=== PATIENT | female | born 1955 | race Caucasian/White ===

== ENCOUNTER 2016-06-12 06:38 | Inpatient (IN) | payer OTHER, BC ==
[~2016-06-12] VITALS: Ht 157.5 cm; Wt 73.5 kg
--- NOTE | 2016-06-12 09:34 | DIAGNOSTIC IMAGING REPORT ---
PROCEDURE: XR CHEST 2 VIEW INDICATION: COUGH TECHNIQUE: PA and lateral view. COMPARISON: None. FINDINGS: Hyperinflation with small left basilar infiltrate Cardiovascular structures are normal. Bony thorax is unremarkable. IMPRESSION: 1. Hyperinflation with small left basilar infiltrate 2. Results discussed with Dr. Jules
--- NOTE | 2016-06-12 10:12 | ED CLINICAL REPORT ---
Clinical Report - Physicians/Mid Levels [facility] [address] [place] [address] 06/12/2016 6:40 Patient: MARIBEL MAYES Time Seen: 06:53 Guillermo 2016. Arrived- By private vehicle. Historian- patient. CPT: ER phys charges level 5 (#[id number]). HISTORY OF PRESENT ILLNESS Chief Complaint: COUGH. This started about 1 weeks [employer] and is still present. The illness is described as moderate. The patient has had sputum production, a cough, difficulty breathing, a sore throat and muscle aches. Similar symptoms previously: None. Recent medical care: Not recently seen/assessed. REVIEW OF SYSTEMS The patient has had a headache, fatigue and weakness. No nausea, vomiting, diarrhea, abdominal pain or pedal edema. No calf pain, difficulty with urination, skin rash, enlarged lymph nodes or mouth sores. No sore throat, neck pain, diabetic symptoms or easy bruising. All systems otherwise negative, except as recorded above. PAST HISTORY Pneumonia. Medications: Morphine Sulfate Oral. Synthroid Oral. Ziac Oral. Allergies: Biaxin. Sulfa Antibiotics. SOCIAL HISTORY Light tobacco smoker (cigarette)- less than 1/2 a pack per day. No alcohol use or drug use. ADDITIONAL NOTES The nursing notes have been reviewed. PHYSICAL EXAM Vital Signs: 06/12/2016 06:50 BP: 198/101. HR: 74. RR: 18. O2 saturation: 99%. Temp: 98.5 F. Appearance: Alert. Anxious. Patient in moderate distress. (Fatigued appearing). Eyes: Eyes normal inspection. ENT: Ears normal. Nose normal. Pharynx normal. Uvula midline. Neck: Normal inspection. CVS: Normal heart rate and rhythm. Heart sounds normal. Pulses normal. Respiratory: Moderate respiratory distress with tachypnea. Mild wheezes in the right lung base. Mild rales in the right lung base; mild rales in the left lung base. Abdomen: Soft and nontender. Back: Normal inspection. Skin: Skin warm. Normal skin color. No rash. Extremities: Extremities exhibit normal ROM. No calf tenderness. No lower extremity edema. Neuro: Oriented X 3. No motor deficit. No sensory deficit. Reflexes normal. LABS, X-RAYS, AND EKG Chest X-ray: (Perihilar changes consistent with bronchitis. There is an area of patchy infiltrate over the LLL.). Views: PA and lateral. Technique: good. The X-rays were independently viewed by me and interpreted contemporaneously by me. Laboratory Tests: CBC w Diff: (AMANDA: 06/13/2016 05:03) ( [facility] 06/13/2016 05:41) Final results Test Result Flag Units (Reference) WHITE BLOOD COUNT 7.0 K/uL (4.5-11.5) RED BLOOD COUNT 3.17 L M/uL (4.00-5.20) HEMOGLOBIN 10.8 L gm/dL (12.0-16.0) HEMATOCRIT 33.1 L % (36.0-46.0) MEAN CELL VOLUME 104 H fL (80-100) MEAN CORPUSCULAR HGB 34 pg (26-34) MEAN CORPUSCULAR HGB CONC 33 g/dL (31-37) RED CELL DISTRIBUTION WIDTH 13.7 % (11.6-14.8) PLATELET COUNT 223 K/uL (150-400) NEUTROPHIL % 90.3 H % (50-75) LYMPH % 5.9 L % (25-40) MONO % 3.7 % (3-14) EOSINOPHIL % 0 % (0-4) BASOPHIL % 0.1 % (0-2) [id number]: (AMANDA: 06/13/2016 05:03) ( [facility] 06/13/2016 06:03) Final results Test Result Flag Units (Reference) PROCALCITONIN <0.5 ng/mL (0-0.5) PCT Concentration: Interpretation : Risk/option for action PCT <=0.5 ng/mL : Systemic : Low risk forinfection(sepsis): progression to severeis not likely. : systemic infection.Local bacterial : CAUTION-PCT levelsinfection is : below 0.5 ng/mL do notpossible. : exclude an infection,because localizedinfections (withoutsystemic signs) may beassociated with suchlow levels. If PCT ismeasured very earlyafter a bacterialchallenge (usually <6hours), these valuesmay still be low. Inthis case PCT shouldbe re-assessed 6-24hours later. PCT >0.5 and : Systemic infection: Moderate risk for<= 2 ng/mL : (sepsis) is : progression to severepossible, but : systemic infection.other conditions : The patient should beare known to : closely monitoredelevate PCT. : both clinically andby re-assessing PCTwithin 6-24 hours. PCT > 2 ng/mL : Systemic infection: High risk for(sepsis) is likely: progression to severeunless other : systemic infection.causes are known. : PCT >= 10 ng/mL : Important systemic: High likelihood ofinflammatory : severe sepsis orresponse, almost : septic shock.exclusively due to:severe bacterial :sepsis or septic :shock. : BMP: (AMANDA: 06/13/2016 05:03) ( MsgRcvd 06/13/2016 05:48) Final results Test Result Flag Units (Reference) GLUCOSE 182 H mg/dL (70-110) BUN 10 mg/dL (7-18) CREATININE 0.7 mg/dL (0.6-1.3) Estimated GFR >60 mL/min Estimated GFR- >60 mL/min Note: Persistent reduction over 3 months in eGFR<60 mL/min/1.73 m2 defines CKD. Patients with eGFR values>=60 mL/min/1.73 m2 may also have CKD if evidence ofpersistent proteinuria. Additional information may be foundat www.kidney.org. SODIUM 129 L mmol/L (136-145) POTASSIUM 3.2 # L mmol/L (3.5-5.1) CHLORIDE 93 L mmol/L (98-107) CARBON DIOXIDE 31 mmol/L (21-32) CALCIUM 8.1 L mg/dL (8.5-10.1) MAGNESIUM 1.9 mg/dL (1.8-2.4) Urinalysis: (AMANDA: 06/12/2016 08:00) ( [facility] 06/12/2016 10:34) Final results Test Result Flag Units (Reference) URINE COLOR YELLOW URINE APPEARANCE CLEAR URINE GLUCOSE NEGATIVE (NEGATIVE) URINE BILIRUBIN NEGATIVE (NEGATIVE) URINE KETONE NEGATIVE (NEGATIVE) URINE SPECIFIC GRAVITY 1.015 (1.010-1.030) URINE PH 6.0 (5.0-8.0) URINE PROTEIN TRACE (NEGATIVE) URINE UROBILINOGEN 0.2 EU/dL (0.2-1.0) URINE NITRITE NEGATIVE (NEGATIVE) URINE BLOOD NEGATIVE (NEGATIVE) URINE LEUKOCYTE ESTERASE NEGATIVE (NEGATIVE) URINE RBC 0-1 rbc/hpf (0-1) URINE WBC NONE SEEN wbc/hpf (0-1) URINE EPITHELIAL CELLS RARE EPI/hpf (0-5) URINE BACTERIA NONE SEEN (NONE SEEN) URINE COMMENT N CBC w Diff: (AMANDA: 06/12/2016 08:15) ( [facility] 06/12/2016 08:34) Final results Test Result Flag Units (Reference) WHITE BLOOD COUNT 9.8 K/uL (4.5-11.5) RED BLOOD COUNT 3.50 L M/uL (4.00-5.20) HEMOGLOBIN 11.9 L gm/dL (12.0-16.0) HEMATOCRIT 36.2 % (36.0-46.0) MEAN CELL VOLUME 103 H fL (80-100) MEAN CORPUSCULAR HGB 34 pg (26-34) MEAN CORPUSCULAR HGB CONC 33 g/dL (31-37) RED CELL DISTRIBUTION WIDTH 14.1 % (11.6-14.8) PLATELET COUNT 248 K/uL (150-400) NEUTROPHIL % 84.2 H % (50-75) LYMPH % 8.4 L % (25-40) MONO % 5.7 % (3-14) EOSINOPHIL % 1.4 % (0-4) BASOPHIL % 0.3 % (0-2) Lactate, Serum: (AMANDA: 06/12/2016 10:25) ( [facility] 06/12/2016 11:07) Final results Test Result Flag Units (Reference) LACTIC ACID 1.0 mmol/L (0.4-2.0) [id number]: (AMANDA: 06/12/2016 10:25) ( MsgRcvd 06/12/2016 11:17) Final results Test Result Flag Units (Reference) PROCALCITONIN <0.5 ng/mL (0-0.5) PCT Concentration: Interpretation : Risk/option for action PCT <=0.5 ng/mL : Systemic : Low risk forinfection(sepsis): progression to severeis not likely. : systemic infection.Local bacterial : CAUTION-PCT levelsinfection is : below 0.5 ng/mL do notpossible. : exclude an infection,because localizedinfections (withoutsystemic signs) may beassociated with suchlow levels. If PCT ismeasured very earlyafter a bacterialchallenge (usually <6hours), these valuesmay still be low. Inthis case PCT shouldbe re-assessed 6-24hours later. PCT >0.5 and : Systemic infection: Moderate risk for<= 2 ng/mL : (sepsis) is : progression to severepossible, but : systemic infection.other conditions : The patient should beare known to : closely monitoredelevate PCT. : both clinically andby re-assessing PCTwithin 6-24 hours. PCT > 2 ng/mL : Systemic infection: High risk for(sepsis) is likely: progression to severeunless other : systemic infection.causes are known. : PCT >= 10 ng/mL : Important systemic: High likelihood ofinflammatory : severe sepsis orresponse, almost : septic shock.exclusively due to:severe bacterial :sepsis or septic :shock. : CHEM 13 PANEL: (AMANDA: 06/12/2016 08:15) ( MsgRcvd 06/12/2016 08:51) Final results Test Result Flag Units (Reference) GLUCOSE 116 H mg/dL (70-110) BUN 10 mg/dL (7-18) CREATININE 0.6 mg/dL (0.6-1.3) Estimated GFR >60 mL/min Estimated GFR- >60 mL/min Note: Persistent reduction over 3 months in eGFR<60 mL/min/1.73 m2 defines CKD. Patients with eGFR values>=60 mL/min/1.73 m2 may also have CKD if evidence ofpersistent proteinuria. Additional information may be foundat www.kidney.org. SODIUM 124 L mmol/L (136-145) POTASSIUM 4.1 mmol/L (3.5-5.1) CHLORIDE 87 L mmol/L (98-107) CARBON DIOXIDE 33 H mmol/L (21-32) CALCIUM 8.7 mg/dL (8.5-10.1) TOTAL PROTEIN 7.4 g/dL (6.4-8.2) ALBUMIN 3.8 g/dL (3.3-5.0) BILIRUBIN, TOTAL 0.4 mg/dL (0.0-1.0) ALKALINE PHOSPHATASE 113 U/L (46-116) AST (SGOT) 52 H U/L (15-37) ALT (SGPT) 52 U/L (12-78) MAGNESIUM 1.4 L mg/dL (1.8-2.4) CPK 146 U/L (24-260) TROPONIN I <0.05 L ng/mL (0.00-1.5) TROPONIN REFERENCE RANGE:<0.1 NEGATIVE0.1-1.5 INDETERMINANT>1.5 POSITIVE Blood Culture: (AMANDA: 06/12/2016 10:30) ( [facility] 06/13/2016 10:32) IP Is patient on antibiotics? N If so, list antibiotic: N/A Test Result Flag Units (Reference) CULTURE, BLOOD NO GROWTH AFTER 24 HOURS Blood Culture: (AMANDA: 06/12/2016 10:25) ( [facility] 06/13/2016 10:32) IP Is patient on antibiotics? N If so, list antibiotic: N/A Test Result Flag Units (Reference) CULTURE, BLOOD NO GROWTH AFTER 24 HOURS Rapid Influenza Screen: (AMANDA: 06/12/2016 08:00) ( [facility] 06/12/2016 08:43) Final results SPECIMEN DESCRIPTION: SWAB Test Result Flag Units (Reference) RAPID INFLUENZA SCREEN CALLED TO: SHAMAR OSPINA,ER -- DATE: 06/12/16 INFLUENZA A: POSITIVE SCREEN FOR INFLUENZA A INFLUENZA B: NEGATIVE SCREEN FOR INFLUENZA B . PROGRESS AND PROCEDURES Course of Care: IV NS Still wheezing despite 2 HHN Pt positive for influenza A. RT notes patient desturated initially on ambulation before HHN. Will check walk test after HHN. Solumedrol 125 mg IV Pt quite SOB with ambulation and wheezing persists although sats still in the low 90's. Worried about work of breathing, weakness and potential staph pneumonia with the positive influenza A status and infiltrate. BC times 2 Vancomycin 25 mg /kg IV Levaquin 750 mg IV Tamiflu 75 mg po. Discussed case with on-call health care provider, (Soraya). Reviewed test results. Agreed upon treatment plan and decision to admit. Health care provider will see patient in hospital. Patient/family counseled. Old medical records ordered. Disposition orders written. Disposition: Admitted to Acute Care. CLINICAL IMPRESSION Acute dyspnea Influenza (A) and bacterial pneumonia. Vital signs recorded and reviewed; empiric antibiotics given in the ED. Acute bronchospasm Weakness. (Electronically signed by Woody Jules MD 06/13/2016 13:15)
--- NOTE | 2016-06-12 10:12 | ED ORDER SUMMARY ---
..... Patient: MARIBEL MAYES OrderSheet [facility] VisitID: [id number] [address] [place] [address] 61y, F Registration Date/Time: 06/12/2016 ORDER SHEET Weight: 66.6 kg (stated) Allergies: Biaxin, Sulfa Antibiotics GENERAL ORDERS: Chest 2V Urgent (06:56 06/12/2016 Dalia PICKENS) (Ack 7:01 [facility]) (10:39 LWhalen R.N.) Rapid Influenza Screen (Nasal Pharyngeal) (swab) Urgent (06:56 06/12/2016 Dalia PICKENS) (Ack 7:01 [facility]) (8:05 Althea R.N.) Cardiac Panel Stat (08:02 06/12/2016 Dalia PICKENS) (Ack 8:08 Joanne) (10:39 LWhalen R.N.) Blood Culture (No) (N/A) Urgent (10:06 06/12/2016 Dalia PICKENS) (10:28 LWhalen R.N.) Oxygen (2 L/min) (NC) (10:08 06/12/2016 Dalia PICKENS) (10:28 LWhalen R.N.) Pulse oximeter (10:08 06/12/2016 Dalia PICKENS) (10:28 LWhalen R.N.) Lactate, Serum Urgent (10:11 06/12/2016 Dalia PICKENS) (10:39 LWhalen R.N.) PCT (Procalcitonin) Urgent (10:11 06/12/2016 Dalia PICKENS) (10:39 LWhalen R.N.) Urinalysis Urgent (10:13 06/12/2016 Dalia PICKENS) MEDICATION ORDERS: DuoNeb Neb Tx 1 unit dose (NOW) (06:48 06/12/2016 Lele R.N. per protocol) (Ack 6:51 [facility]) Albuterol Neb Tx 2.5 mg (NOW, HHN) (08:02 06/12/2016 Dalia PICKENS) (Ack 9:52 Joanne) - (TAMIFLU 75 MG PO) (10:06/12/2016 Dalia PICKENS) (10:25 LWhalrehan R.N.) IV FLUIDS: IV Saline Lock (08:02 06/12/2016 Dalia PICKENS) (8:25 LWhalrehan R.N.) Vancomycin IV 25 mg/kg (NOW) (10:06/12/2016 Dalia PICKENS) (Ack 10:29 LWhalrehan R.N.) Levaquin IV 750 mg/150 mL (NOW) (10:06/12/2016 Dalia PICKENS) (Ack 10:29 LWhalrehan R.N.) (10:39 LWhalrehan R.N.) Solu-MEDROL IV 125 mg (NOW) (:06/12/2016 Dalia PICKENS) (10:24 LWhalrehan R.N.) IV NS : initial bolus 250 mL (1000 mL/hr), then 125 mL/hr for 12h (NOW); Routine (10:06/12/2016 Dalia PICKENS) (10:24 LWhalrehan R.N.) ORDER SHEET NOTES: [Electronically signed by Karen Quiroga R.N. (11:20 06/12/2016)] [Electronically signed by Woody Jules MD (13:15 06/13/2016)] [Electronically locked/signed by Karen Quiroga R.N. (11:20 06/12/2016)]
--- NOTE | 2016-06-12 10:12 | ED NURSING NOTES ---
Clinical Report - Nurses [facility] [address] [place] [address] 06/12/2016 6:40 Patient: MARIBEL MAYES TRIAGE Chief Complaint: SHORTNESS OF BREATH and DIFFICULTY BREATHING. SEPSIS SCREEN: Sepsis Screen: respiratory rate greater than 20. Temperature not greater than 38.3 degrees C (101 degrees F). Heart rate not greater than 90. Systolic blood pressure not less than 90. Mean arterial pressure not less than 65. --06:53 Roscoe Raygoza R.N. 06:50 06/12/16. BP: 198/101. HR: 74. RR: 18. O2 saturation: 99%. Temp: 98.5 F. Pain level now 0/10. --06:53 Roscoe Raygoza R.N. Weight: 66.6 kg stated. Height/Length: 62 inches. BMI: 26.9. --06:51 Roscoe Raygoza R.N. Medications Ziac Oral. --06:52 Roscoe Raygoza R.N. Synthroid Oral. --06:52 Roscoe Raygoza R.N. Morphine Sulfate Oral. --06:52 Roscoe Raygoza R.N. Allergies Biaxin. --06:53 Roscoe Raygoza R.N. Sulfa Antibiotics. --06:53 Roscoe Raygoza R.N. History ( pt reports sob for past week increased symptoms this evening). --06:53 Roscoe Raygoza R.N. SOCIAL HX: Light tobacco smoker. No alcohol use or drug use. --06:55 Roscoe Raygoza R.N. PHYSICAL ASSESSMENT GENERAL / NEURO / PSYCH: Alert. Oriented X 4. Appears anxious. RESPIRATORY: Mild respiratory distress. The patient can speak one word at a time. Cough productive of moderate amounts of sputum. Wheezes in the right and left lung. CVS: Capillary refill less than 2 seconds. GI / : Bowel sounds within normal limits. SKIN: Skin is warm and dry. --06:54 Roscoe Raygoza R.N. Ambulatory to room. --06:54 Roscoe Raygoza R.N. NURSING PROGRESS NOTES Oxygen administered. Monitoring of patient in place. Patient gowned. Reassurance given. Two patient identifiers checked. Side rails up x 1. Bed placed in lowest position. --06:54 Roscoe Raygoza R.N. ( Pt taken off 02 sat well on RA alert and oriented GCS 15). --07:19 Roscoe Raygoza R.N. 08:25 06/12/2016 Site #1 started via IV in the right antecubital space with an 20g angiocath, with aseptic technique and good blood return; one attempt. Blood drawn: rainbow set. Labeled in the presence of the patient and sent to the lab. Saline lock flushed with 10 mL saline. --08:25 Karen Quiroga R.N. ( Patient walking with O2 sensor on and sat stable at 97 percent. Patient can speak full sentences but is sob with coughing.). --09:42 Karen Quiroga R.N. 08:55 06/12/16. BP: 148/62. HR: 88. RR: 18. O2 saturation: 98% on room air. 08:10 06/12/16. BP: 147/77. HR: 97. RR: 18. O2 saturation: 98%. --09:47 Karen Quiroga R.N. 10:24 06/12/2016 SOLU-MEDROL (MethylPREDNISolone Sodium Succ) IVP 125 mg given over 2 minute(s) via site #1. Allergies verified and confirmed 5 rights. IV patency established. IV site checked: no pain, redness, or swelling. IV flushed thoroughly pre- and post-medication administration. --10:24 Karen Quiroga R.N. 10:24 06/12/2016 Started bag #1 1000 mL IV Fluids IV NS (Saline); at 1000 mL/hr over 0.5 hour(s) via site #1 via IV pump. Allergies verified and confirmed 5 rights. IV patency established. IV site checked: no pain, redness, or swelling. IV flushed thoroughly pre- and post-medication administration. --10:24 Karen Quiroga R.N. 10:25 06/12/2016 Tamiflu PO Capsules 75 mg given. Allergies verified and confirmed 5 rights. --10:25 Karen Quiroga R.N. 10:39 06/12/2016 Started 750 mg of Levaquin (Levofloxacin) IVPB in bag #1 150 mL; at 100 mL/hr over 1.5 hour(s) via site #1 via IV pump. Allergies verified and confirmed 5 rights. IV patency established. IV site checked: no pain, redness, or swelling. IV flushed thoroughly pre- and post-medication administration. --10:39 Karen Quiroga R.N. 10:53 06/12/16. BP: 139/66. HR: 90. RR: 22. O2 saturation: 100%. Pain level now 0/10. --10:55 Karen Quiroga R.N. 10:53 06/12/16. BP: 139/66. HR: 90. RR: 22. O2 saturation: 100%. Pain level now 0/10. 10:20 06/12/16. BP: 139/68. HR: 90. RR: 18. O2 saturation: 100%. --11:00 Karen Quiroga R.N. ( report given to Abhijeet IBANEZ in [facility]U patient will be admitted.). --11:00 Karen Quiroga R.N. DISPOSITION / DISCHARGE Departure time: 11:00 Jun 12 2016. Admitted (308). ( Report given transport here to take pt.). --11:16 Karen Quiroga R.N. 11:06/12/2016 Site #[address] upon transfer; patent. --11:16 Karen Quiroga R.N. 11:06/12/2016 IV Saline Lock Drip IV Continued: at the rate of 250 mL/hr. 800 mL remaining bag #1. IV patency established. IV site checked: no pain, redness, or swelling. IV flushed thoroughly. --11:17 Karen Quiroga R.N. 11:07 06/12/2016 IV Fluids IV NS Continued: at the rate of 1000 mL/hr. 800 mL remaining bag #1. IV patency established. IV site checked: no pain, redness, or swelling. IV flushed thoroughly. --11:17 Karen Quiroga R.N. 11:08 06/12/2016 Levaquin IVPB Continued: at the rate of 100 mL/hr. 120 mL remaining bag #1. IV patency established. IV site checked: no pain, redness, or swelling. IV flushed thoroughly. --11:18 Karen Quiroga R.N. 10:53 06/12/16. BP: 139/66. HR: 90. RR: 22. O2 saturation: 100%. Pain level now 0/10. --11:19 Karen Quiroga R.N. 11:19 06/12/16. Temp: 97.6 F. --11:19 Karen Quiroga R.N. Locked/Released at 06/12/2016 11:20 by Karen Quiroga R.N.
--- NOTE | 2016-06-12 10:12 | ED CLINICAL REPORT ---
Clinical Report - Physicians/Mid Levels [facility] [address] [place] [address] 06/12/2016 6:40 Patient: MARIBEL MAYES Time Seen: 06:53 Guillermo 2016. Arrived- By private vehicle. Historian- patient. CPT: ER phys charges level 5 (#[id number]). HISTORY OF PRESENT ILLNESS Chief Complaint: COUGH. This started about 1 weeks [employer] and is still present. The illness is described as moderate. The patient has had sputum production, a cough, difficulty breathing, a sore throat and muscle aches. Similar symptoms previously: None. Recent medical care: Not recently seen/assessed. REVIEW OF SYSTEMS The patient has had a headache, fatigue and weakness. No nausea, vomiting, diarrhea, abdominal pain or pedal edema. No calf pain, difficulty with urination, skin rash, enlarged lymph nodes or mouth sores. No sore throat, neck pain, diabetic symptoms or easy bruising. All systems otherwise negative, except as recorded above. PAST HISTORY Pneumonia. Medications: Morphine Sulfate Oral. Synthroid Oral. Ziac Oral. Allergies: Biaxin. Sulfa Antibiotics. SOCIAL HISTORY Light tobacco smoker (cigarette)- less than 1/2 a pack per day. No alcohol use or drug use. ADDITIONAL NOTES The nursing notes have been reviewed. PHYSICAL EXAM Vital Signs: 06/12/2016 06:50 BP: 198/101. HR: 74. RR: 18. O2 saturation: 99%. Temp: 98.5 F. Appearance: Alert. Anxious. Patient in moderate distress. (Fatigued appearing). Eyes: Eyes normal inspection. ENT: Ears normal. Nose normal. Pharynx normal. Uvula midline. Neck: Normal inspection. CVS: Normal heart rate and rhythm. Heart sounds normal. Pulses normal. Respiratory: Moderate respiratory distress with tachypnea. Mild wheezes in the right lung base. Mild rales in the right lung base; mild rales in the left lung base. Abdomen: Soft and nontender. Back: Normal inspection. Skin: Skin warm. Normal skin color. No rash. Extremities: Extremities exhibit normal ROM. No calf tenderness. No lower extremity edema. Neuro: Oriented X 3. No motor deficit. No sensory deficit. Reflexes normal. LABS, X-RAYS, AND EKG Chest X-ray: (Perihilar changes consistent with bronchitis. There is an area of patchy infiltrate over the LLL.). Views: PA and lateral. Technique: good. The X-rays were independently viewed by me and interpreted contemporaneously by me. Laboratory Tests: CBC w Diff: (AMANDA: 06/13/2016 05:03) ( [facility] 06/13/2016 05:41) Final results Test Result Flag Units (Reference) WHITE BLOOD COUNT 7.0 K/uL (4.5-11.5) RED BLOOD COUNT 3.17 L M/uL (4.00-5.20) HEMOGLOBIN 10.8 L gm/dL (12.0-16.0) HEMATOCRIT 33.1 L % (36.0-46.0) MEAN CELL VOLUME 104 H fL (80-100) MEAN CORPUSCULAR HGB 34 pg (26-34) MEAN CORPUSCULAR HGB CONC 33 g/dL (31-37) RED CELL DISTRIBUTION WIDTH 13.7 % (11.6-14.8) PLATELET COUNT 223 K/uL (150-400) NEUTROPHIL % 90.3 H % (50-75) LYMPH % 5.9 L % (25-40) MONO % 3.7 % (3-14) EOSINOPHIL % 0 % (0-4) BASOPHIL % 0.1 % (0-2) [id number]: (AMANDA: 06/13/2016 05:03) ( [facility] 06/13/2016 06:03) Final results Test Result Flag Units (Reference) PROCALCITONIN <0.5 ng/mL (0-0.5) PCT Concentration: Interpretation : Risk/option for action PCT <=0.5 ng/mL : Systemic : Low risk forinfection(sepsis): progression to severeis not likely. : systemic infection.Local bacterial : CAUTION-PCT levelsinfection is : below 0.5 ng/mL do notpossible. : exclude an infection,because localizedinfections (withoutsystemic signs) may beassociated with suchlow levels. If PCT ismeasured very earlyafter a bacterialchallenge (usually <6hours), these valuesmay still be low. Inthis case PCT shouldbe re-assessed 6-24hours later. PCT >0.5 and : Systemic infection: Moderate risk for<= 2 ng/mL : (sepsis) is : progression to severepossible, but : systemic infection.other conditions : The patient should beare known to : closely monitoredelevate PCT. : both clinically andby re-assessing PCTwithin 6-24 hours. PCT > 2 ng/mL : Systemic infection: High risk for(sepsis) is likely: progression to severeunless other : systemic infection.causes are known. : PCT >= 10 ng/mL : Important systemic: High likelihood ofinflammatory : severe sepsis orresponse, almost : septic shock.exclusively due to:severe bacterial :sepsis or septic :shock. : BMP: (AMANDA: 06/13/2016 05:03) ( [facility] 06/13/2016 05:48) Final results Test Result Flag Units (Reference) GLUCOSE 182 H mg/dL (70-110) BUN 10 mg/dL (7-18) CREATININE 0.7 mg/dL (0.6-1.3) Estimated GFR >60 mL/min Estimated GFR- >60 mL/min Note: Persistent reduction over 3 months in eGFR<60 mL/min/1.73 m2 defines CKD. Patients with eGFR values>=60 mL/min/1.73 m2 may also have CKD if evidence ofpersistent proteinuria. Additional information may be foundat www.kidney.org. SODIUM 129 L mmol/L (136-145) POTASSIUM 3.2 # L mmol/L (3.5-5.1) CHLORIDE 93 L mmol/L (98-107) CARBON DIOXIDE 31 mmol/L (21-32) CALCIUM 8.1 L mg/dL (8.5-10.1) MAGNESIUM 1.9 mg/dL (1.8-2.4) Urinalysis: (AMANDA: 06/12/2016 08:00) ( [facility] 06/12/2016 10:34) Final results Test Result Flag Units (Reference) URINE COLOR YELLOW URINE APPEARANCE CLEAR URINE GLUCOSE NEGATIVE (NEGATIVE) URINE BILIRUBIN NEGATIVE (NEGATIVE) URINE KETONE NEGATIVE (NEGATIVE) URINE SPECIFIC GRAVITY 1.015 (1.010-1.030) URINE PH 6.0 (5.0-8.0) URINE PROTEIN TRACE (NEGATIVE) URINE UROBILINOGEN 0.2 EU/dL (0.2-1.0) URINE NITRITE NEGATIVE (NEGATIVE) URINE BLOOD NEGATIVE (NEGATIVE) URINE LEUKOCYTE ESTERASE NEGATIVE (NEGATIVE) URINE RBC 0-1 rbc/hpf (0-1) URINE WBC NONE SEEN wbc/hpf (0-1) URINE EPITHELIAL CELLS RARE EPI/hpf (0-5) URINE BACTERIA NONE SEEN (NONE SEEN) URINE COMMENT N CBC w Diff: (AMANDA: 06/12/2016 08:15) ( [facility] 06/12/2016 08:34) Final results Test Result Flag Units (Reference) WHITE BLOOD COUNT 9.8 K/uL (4.5-11.5) RED BLOOD COUNT 3.50 L M/uL (4.00-5.20) HEMOGLOBIN 11.9 L gm/dL (12.0-16.0) HEMATOCRIT 36.2 % (36.0-46.0) MEAN CELL VOLUME 103 H fL (80-100) MEAN CORPUSCULAR HGB 34 pg (26-34) MEAN CORPUSCULAR HGB CONC 33 g/dL (31-37) RED CELL DISTRIBUTION WIDTH 14.1 % (11.6-14.8) PLATELET COUNT 248 K/uL (150-400) NEUTROPHIL % 84.2 H % (50-75) LYMPH % 8.4 L % (25-40) MONO % 5.7 % (3-14) EOSINOPHIL % 1.4 % (0-4) BASOPHIL % 0.3 % (0-2) Lactate, Serum: (AMANDA: 06/12/2016 10:25) ( [facility] 06/12/2016 11:07) Final results Test Result Flag Units (Reference) LACTIC ACID 1.0 mmol/L (0.4-2.0) [id number]: (AMANDA: 06/12/2016 10:25) ( [facility] 06/12/2016 11:17) Final results Test Result Flag Units (Reference) PROCALCITONIN <0.5 ng/mL (0-0.5) PCT Concentration: Interpretation : Risk/option for action PCT <=0.5 ng/mL : Systemic : Low risk forinfection(sepsis): progression to severeis not likely. : systemic infection.Local bacterial : CAUTION-PCT levelsinfection is : below 0.5 ng/mL do notpossible. : exclude an infection,because localizedinfections (withoutsystemic signs) may beassociated with suchlow levels. If PCT ismeasured very earlyafter a bacterialchallenge (usually <6hours), these valuesmay still be low. Inthis case PCT shouldbe re-assessed 6-24hours later. PCT >0.5 and : Systemic infection: Moderate risk for<= 2 ng/mL : (sepsis) is : progression to severepossible, but : systemic infection.other conditions : The patient should beare known to : closely monitoredelevate PCT. : both clinically andby re-assessing PCTwithin 6-24 hours. PCT > 2 ng/mL : Systemic infection: High risk for(sepsis) is likely: progression to severeunless other : systemic infection.causes are known. : PCT >= 10 ng/mL : Important systemic: High likelihood ofinflammatory : severe sepsis orresponse, almost : septic shock.exclusively due to:severe bacterial :sepsis or septic :shock. : CHEM 13 PANEL: (AMANDA: 06/12/2016 08:15) ( Msg[facility] 06/12/2016 08:51) Final results Test Result Flag Units (Reference) GLUCOSE 116 H mg/dL (70-110) BUN 10 mg/dL (7-18) CREATININE 0.6 mg/dL (0.6-1.3) Estimated GFR >60 mL/min Estimated GFR- >60 mL/min Note: Persistent reduction over 3 months in eGFR<60 mL/min/1.73 m2 defines CKD. Patients with eGFR values>=60 mL/min/1.73 m2 may also have CKD if evidence ofpersistent proteinuria. Additional information may be foundat www.kidney.org. SODIUM 124 L mmol/L (136-145) POTASSIUM 4.1 mmol/L (3.5-5.1) CHLORIDE 87 L mmol/L (98-107) CARBON DIOXIDE 33 H mmol/L (21-32) CALCIUM 8.7 mg/dL (8.5-10.1) TOTAL PROTEIN 7.4 g/dL (6.4-8.2) ALBUMIN 3.8 g/dL (3.3-5.0) BILIRUBIN, TOTAL 0.4 mg/dL (0.0-1.0) ALKALINE PHOSPHATASE 113 U/L (46-116) AST (SGOT) 52 H U/L (15-37) ALT (SGPT) 52 U/L (12-78) MAGNESIUM 1.4 L mg/dL (1.8-2.4) CPK 146 U/L (24-260) TROPONIN I <0.05 L ng/mL (0.00-1.5) TROPONIN REFERENCE RANGE:<0.1 NEGATIVE0.1-1.5 INDETERMINANT>1.5 POSITIVE Blood Culture: (AMANDA: 06/12/2016 10:30) ( [facility] 06/13/2016 10:32) IP Is patient on antibiotics? N If so, list antibiotic: N/A Test Result Flag Units (Reference) CULTURE, BLOOD NO GROWTH AFTER 24 HOURS Blood Culture: (AMANDA: 06/12/2016 10:25) ( [facility] 06/13/2016 10:32) IP Is patient on antibiotics? N If so, list antibiotic: N/A Test Result Flag Units (Reference) CULTURE, BLOOD NO GROWTH AFTER 24 HOURS Rapid Influenza Screen: (AMANDA: 06/12/2016 08:00) ( [facility] 06/12/2016 08:43) Final results SPECIMEN DESCRIPTION: SWAB Test Result Flag Units (Reference) RAPID INFLUENZA SCREEN CALLED TO: SHAMAR OSPINA,ER -- DATE: 06/12/16 INFLUENZA A: POSITIVE SCREEN FOR INFLUENZA A INFLUENZA B: NEGATIVE SCREEN FOR INFLUENZA B . PROGRESS AND PROCEDURES Course of Care: IV NS Still wheezing despite 2 HHN Pt positive for influenza A. RT notes patient desturated initially on ambulation before HHN. Will check walk test after HHN. Solumedrol 125 mg IV Pt quite SOB with ambulation and wheezing persists although sats still in the low 90's. Worried about work of breathing, weakness and potential staph pneumonia with the positive influenza A status and infiltrate. BC times 2 Vancomycin 25 mg /kg IV Levaquin 750 mg IV Tamiflu 75 mg po. Discussed case with on-call health care provider, (Soraya). Reviewed test results. Agreed upon treatment plan and decision to admit. Health care provider will see patient in hospital. Patient/family counseled. Old medical records ordered. Disposition orders written. Disposition: Admitted to Acute Care. CLINICAL IMPRESSION Acute dyspnea Influenza (A) and bacterial pneumonia. Vital signs recorded and reviewed; empiric antibiotics given in the ED. Acute bronchospasm Weakness. (Electronically signed by Woody Jules MD 06/13/2016 13:15)
--- NOTE | 2016-06-12 10:12 | ED ORDER SUMMARY ---
..... Patient: MARIBEL MAYES OrderSheet [facility] VisitID: [id number] [address] [place] [address] 61y, F Registration Date/Time: 06/12/2016 ORDER SHEET Weight: 66.6 kg (stated) Allergies: Biaxin, Sulfa Antibiotics GENERAL ORDERS: Chest 2V Urgent (06:56 06/12/2016 Dalia PICKENS) (Ack 7:01 [facility]) (10:39 LWhalen R.N.) Rapid Influenza Screen (Nasal Pharyngeal) (swab) Urgent (06:56 06/12/2016 Dalia PICKENS) (Ack 7:01 [facility]) (8:05 Althea R.N.) Cardiac Panel Stat (08:02 06/12/2016 Dalia PICKENS) (Ack 8:08 Joanne) (10:39 LWhalen R.N.) Blood Culture (No) (N/A) Urgent (10:06 06/12/2016 Dalia PICKENS) (10:28 LWhalen R.N.) Oxygen (2 L/min) (NC) (10:08 06/12/2016 Dalia PICKENS) (10:28 LWhalen R.N.) Pulse oximeter (10:08 06/12/2016 Dalia PICKENS) (10:28 LWhalen R.N.) Lactate, Serum Urgent (10:11 06/12/2016 Dalia PICKENS) (10:39 LWhalen R.N.) PCT (Procalcitonin) Urgent (10:11 06/12/2016 Dalia PICKENS) (10:39 LWhalen R.N.) Urinalysis Urgent (10:13 06/12/2016 Dalia PICKENS) MEDICATION ORDERS: DuoNeb Neb Tx 1 unit dose (NOW) (06:48 06/12/2016 Lele R.N. per protocol) (Ack 6:51 [facility]) Albuterol Neb Tx 2.5 mg (NOW, HHN) (08:02 06/12/2016 Dalia PICKENS) (Ack 9:52 Joanne) - (TAMIFLU 75 MG PO) (10:06/12/2016 Dalia PICKENS) (10:25 LWhalrehan R.N.) IV FLUIDS: IV Saline Lock (08:02 06/12/2016 Dalia PICKENS) (8:25 LWhalrehan R.N.) Vancomycin IV 25 mg/kg (NOW) (10:06/12/2016 Dalia PICKENS) (Ack 10:29 LWhalrehan R.N.) Levaquin IV 750 mg/150 mL (NOW) (10:06/12/2016 Dalia PICKENS) (Ack 10:29 LWhalrehan R.N.) (10:39 LWhalrehan R.N.) Solu-MEDROL IV 125 mg (NOW) (:06/12/2016 Dalia PICKENS) (10:24 LWhalrehan R.N.) IV NS : initial bolus 250 mL (1000 mL/hr), then 125 mL/hr for 12h (NOW); Routine (10:06/12/2016 Dalia PICKENS) (10:24 LWhalrehan R.N.) ORDER SHEET NOTES: [Electronically signed by Karen Quiroga R.N. (11:20 06/12/2016)] [Electronically signed by Woody Jules MD (13:15 06/13/2016)] [Electronically locked/signed by Karen Quiroga R.N. (11:20 06/12/2016)]
[2016-06-12 11:22] VITALS: BP 174/85
[2016-06-12 13:16] VITALS: BP 141/79
[2016-06-12] MEDS ORDERED: SYNTHROID100 MCG PO (15:02)
[2016-06-12] MEDS ORDERED: ZIAC (15:02)
[2016-06-12] MEDS ORDERED: MORPHINE SULFATE5 MG PO (15:03)
--- NOTE | 2016-06-12 17:09 | NUR ---
STATES SHE FEELS "BETTER", BUT STILL GETS SOB WITH EXHERTION. HAS A DRY COUGH. NO CHANGE IN BREATH SOUNDS WITH COARSE EXP WHEEZES AND RHONCHI T/O. O2 SATS ON 2LPM VIA NC 97-99%.
[2016-06-12 19:09] VITALS: BP 152/88
--- NOTE | 2016-06-12 20:08 | NUR ---
PATIENT SITTING UP IN TRIPOD POSITION DURING COUGHING EPISODES. REQUESTED TO KEEP PHLEGM SO THIS RN AND LOOK AT IT. TOO THICK TO COUGH AND DRY. INDEPENDENT IN ROOM. PATIENT STATES FEELING BETTER TODAY. ENCOURAGED FLUID INTAKE. VSS. NO NAUSEA, HESS OR SOB AT THIS TIME. IBUPROPHEN PROVIDED FOR CONSTANT BACK PAIN, MORPHINE, AMBIEN ARE CONSISTENTLY USED AT HOME FOR BACK PAIN. MD PRESCRIBED AND WILL ADMIN AROUND 2100. MG SULFATE RUNNING NOW. PT USES CALL LIGHT APPROPRIATELY. WCTM.
--- NOTE | 2016-06-12 21:19 | HISTORY AND PHYSICAL ---
ADMITTED: 06/12/2016 CHIEF COMPLAINT: 1. Fever 2. Cough 3. Difficulty breathing HISTORY OF PRESENT ILLNESS: The patient is a 61-year-old lady who developed cold symptoms about 5 days ago with sore throat and some nasal congestion. This progressed and worsened to increased difficulties with coughing. Yesterday evening, she developed quite severe coughing and shortness of breath and wheezing. She was needing to sit up all night to be able to breathe. She had a fever up to around 101 degrees. She presented to the emergency department today and was found to have quite significant chest congestion, wheezing, and low oxygen saturations in the 80s, which would fall with exertion. She had a chest x-ray which showed a left lower lobe infiltrate and influenza screen was positive. Due to this, she was felt to be at risk for worsening of pneumonia, and particularly for a Staphylococcus aureus pneumonia. She was given vancomycin and levofloxacin in the emergency department and admitted for further care. She is currently resting comfortably on the baker and is feeling quite a bit better. MEDICAL/SURGICAL HISTORY: Past medical history was remarkable for hypertension, lumbar disk disease, and problems with chronic pain in the lower extremities due to shingles and previous disk problems. Past surgical history is remarkable for tonsillectomy done many years ago. She also had an appendectomy done as a young adult. She has had 3 normal pregnancies and deliveries. She has also had a hysterectomy and oophorectomy done a number of years ago. Her last surgery was a lumbar laminectomy done about 10 years ago, which was quite effective in relieving pain in her lower back and pain and numbness in her lower legs. MEDICATIONS: Include: 1. Ziac 2 tablets daily for blood pressure control. 2. She also takes morphine extended release 15 mg strength 1 every 12 hours for relief of back pain and leg pain. 3. She takes Zolpidem 5 mg at bedtime to help with sleeping. 4. She also uses Zovirax tabs intermittently for help with pain from an episode of shingles she had quite a number of years ago. ALLERGIES: 1. THE PATIENT IS SENSITIVE TO BIAXIN. 2. WELL TO TENORMIN. 3. ALSO SENSITIVE TO SULFA DRUGS. 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 She does have a history of smoking about 6-7 cigarettes per day for many years. She stopped 1 week ago. She has 1-2 alcoholic drinks in the evening. FAMILY HISTORY: Remarkable for a mother who is 88 years old, who has hypertension and is otherwise in good condition. The patient's father had alcohol problems and developed alcoholic liver disease and cirrhosis and in his mid 50s. REVIEW OF SYSTEMS: HEENT is okay. Respiratory: As noted above. Cardiovascular: Remarkable for hypertension, but no problems with recent chest pain or edema or irregular heartbeats. Gastrointestinal is okay with no problems with nausea, vomiting, heartburn, or diarrhea. Genitourinary: Okay with no problems with passing urine, vaginal discharge, or bleeding. She has had no blood in her urine. She has noticed no lumps in her breasts. She has mammograms done regularly. Musculoskeletal: Remarkable for chronic lower back pain and pain down into her lower legs. Neurological: Otherwise okay, with no focal numbness or weakness in other areas. Extremities: Okay with no edema. Skin: Okay with no rashes. Psychiatric: Okay. PHYSICAL EXAMINATION: GENERAL: Reveals the patient to be a woman appearing to be her stated age. VITAL SIGNS: Temperature currently is 98.2. Temperature earlier was 101 degrees. Pulse is 87 and regular. Respiratory rate is 18. Blood pressure is 141/79. Oxygen saturation is currently 99% on 2 liters oxygen per nasal prong. HEENT: Head is normal. Ear canals and tympanic membranes are normal. Eyes show pupils equal, round, and reactive to light. Nose and throat are clear. NECK: Supple without significant adenopathy. Throat is clear. Dentition is good. There is no significant adenopathy. BREASTS: Show no masses. There is no axillary adenopathy. CHEST: Reveals bibasilar rales, somewhat more on the left than the right. There are some diffuse expiratory wheezes and rhonchi. HEART: Reveals a normal S1 and S2 with no distinct murmur. ABDOMEN: Nontender with no organomegaly or mass. Bowel tones are normal. PELVIC AND RECTAL: Not done. EXTREMITIES: Show normal range of motion with no significant edema. Peripheral pulses are normal with +2 dorsalis pedis pulses noted left and right. NEUROLOGIC: Reveals cranial nerves II-XII to be normal. Motor and sensory exams are normal. SKIN: Normal. LAB/IMAGING: Laboratory studies show hemoglobin of 11.9, hematocrit is 36, white blood cell count is 9900. Sodium is 124, potassium is 4.1, chloride is 87, CO2 is 36, glucose is 116, BUN is 10, creatinine is 0.6. Troponin I is less than 0.05. Procalcitonin is less than 0.5. Lactic acid is 1.0. Magnesium is 1.4. SGOT is 52, SGPT is 52, alkaline phosphatase is 113. Chest x-ray shows a patchy left lower lobe infiltrate and otherwise is okay. IMPRESSION: 1. The patient is presenting with influenza A with left lower lobe infiltrate. She is at some risk for bacterial pneumonia, and particularly Staphylococcus aureus pneumonia, due to this. She also has significant bronchospasm associated with this problem. 2. Other problems include longstanding hypertension, currently adequately controlled. 3. Chronic back pain due to lumbar disk disease and prior lumbar surgery. 4. Insomnia problems. 5. She also has hypomagnesemia and hyponatremia, most likely related to her current illness and dietary changes associated with this. 6. She has chronic pain problems related to remote shingles as well. 7. She does have a history of smoking, but hopefully has stopped and will adhere to her New Year's resolution to continue to avoid cigarettes. PLAN: The patient is admitted and will be continued with DuoNeb nebulizers routinely and albuterol nebulizers p.r.n. She will be continued on Solu-Medrol at 80 mg q.12 h. She will also continue with levofloxacin and vancomycin at least for another 24 hours to cover for any possible bacterial pneumonia. Procalcitonin will be ordered for the morning to make sure that this is not going up. Additionally, magnesium will be replaced. She will be started on low-flow normal saline to see if this will correct her hyponatremia. She will continue her usual morphine pain medication and will continue her low- dose Ambien at bedtime to help with sleeping. She will have labetalol ordered for blood pressure control as a substitute for the Ziac. The diuretic and the Ziac will not be ordered at this time due to her relative dehydration and low sodium problems.
[2016-06-12 22:14] VITALS: BP 146/79
--- NOTE | 2016-06-12 23:18 | NUR ---
Pt ambulates to BR independently. SOB with ambulation, coughing decreased. Ear plugs given to PT, door partially closed to decrease noise level. VSS, bed locked and low, call light with PT. WCTM throughout night.
--- NOTE | 2016-06-13 00:16 | NUR ---
PT IS RESTLESS AND UNABLE TO SLEEP, DENIES THAT PAIN IS THE ISSUE, JUST CAN'T SLEEP. WCTM.
--- NOTE | 2016-06-13 03:08 | NUR ---
PATIENT SOUND ASLEEP FOR VITALS AND NEEDED SHAKING TO AWAKEN. NO COUGHING, WHEEZING PRESENT UPON EXPIRATION. VSS. CALL LIGHT ON BEDSIDE TABLE. WCTM.
[2016-06-13 03:11] VITALS: BP 151/91
--- NOTE | 2016-06-13 06:36 | NUR ---
PT AMBULATED IN [place]ITH AROUND 0530, SOB BUT TOLERATED WELL.
[2016-06-13 09:37] VITALS: BP 163/91
--- NOTE | 2016-06-13 09:46 | Progress Note ---
Subjective General 61 y.o female who quit smoking 2 weeks ago presented to the ER "can't breathe" and was found to have an infiltrate and influenza. Patient feels that she is improving some. Has a little better breathing. Has been wheezing some. Prior "couldn't breathe." and now is doing better. Had a few minutes of chest discomfort after going to the BR and coughing some. Now resolved. Physical Exam Vital Signs / I&Os Vital Signs Date Time Temp Pulse Resp B/P Pulse O2 O2 Flow FiO2 Ox Delivery Rate 06/13 0937 97.5 96 24 163/91 98 Room Air 06/13 0311 97.9 79 20 151/91 100 Nasal 2.0 Cannula 06/12 2214 98.2 74 20 146/79 100 Nasal 2.0 Cannula 06/12 2035 2.0 06/12 1920 Nasal 2.0 Cannula 06/12 1909 98.1 80 16 152/88 99 Nasal 2.0 Cannula 06/12 1501 2.0 06/12 1316 98.2 87 18 141/79 99 Nasal 2.0 Cannula 06/12 1157 Nasal 2.0 Cannula 06/12 1122 98.4 89 20 174/85 100 Nasal 2.0 Cannula I&O 06/13 0000 06/12 1600 06/12 0800 Intake Total 912 443 Output Total 550 1250 Balance 362 -807 General Appearance Alert, Cooperative HEENT Normal exam Lungs coarse BS and wheezes Cardiovascular Regular rate and rhythm, No murmurs, gallops, rubs Abdomen Soft, No tenderness Extremities No edema LAB Results Laboratory Tests 06/13 06/13 06/12 06/12 0503 0503 1025 1025 Chemistry Plasma Sodium (136 - 145 mmol/L) 129 Plasma Potassium (3.5 - 5.1 mmol/L) 3.2 Plasma Chloride (98 - 107 mmol/L) 93 CO2 (Enzymatic) (21 - 32 mmol/L) 31 BUN (7 - 18 mg/dL) 10 Creatinine (0.6 - 1.3 mg/dL) 0.7 Est GFR ( Amer) (mL/min) >60 Est GFR (Non-Af Amer) (mL/min) >60 Glucose (70 - 110 mg/dL) 182 Lactic Acid (0.4 - 2.0 mmol/L) 1.0 Plasma Calcium (8.5 - 10.1 mg/dL) 8.1 Plasma Magnesium (1.8 - 2.4 mg/dL) 1.9 Procalcitonin (0 - 0.5 ng/mL) <0.5 <0.5 Hematology WBC (4.5 - 11.5 K/uL) 7.0 RBC (4.00 - 5.20 M/uL) 3.17 Hgb (12.0 - 16.0 gm/dL) 10.8 Hct (36.0 - 46.0 %) 33.1 MCV (80 - 100 fL) 104 MCH (26 - 34 pg) 34 RDW (11.6 - 14.8 %) 13.7 Neut % (Auto) (50 - 75 %) 90.3 Lymph % (Auto) (25 - 40 %) 5.9 Davidson % (Auto) (3 - 14 %) 3.7 Eos % (Auto) (0 - 4 %) 0 Baso % (Auto) (0 - 2 %) 0.1 Plt Count, EDTA (150 - 400 K/uL) 223 PUBS MCHC (31 - 37 g/dL) 33 Microbiology Date/Time Procedure - Status Source Growth 06/12 1030 Blood Culture - RECD BLOOD 06/12 1025 Blood Culture - RECD BLOOD Assessment and Plan Problem List 1. Pneumonia and influenza Plan change patient off of IV abx to PO with staph coverage keflex. Is with wheezing and likely COPD issues with recent hx of smoking. Will have her use inhalers and abx po and see about ? d/c tomorrow if better. 2. Wheezing Plan change to oral prednisone and continue inhalers.
--- NOTE | 2016-06-13 10:47 | NUR ---
PATIENT HAD AN EPISODE OF BURNING PAIN IN HER RIGHT ARM THAT RADIATED ACROSS HER CHEST. VANCOMYCIN INFUSING IN AFFECTED ARM. RATE TURNED DOWN AND VITAL SIGNS TAKEN. BP ELEVATED SLIGHTLY AND RESPIRATIONS 24 WITH SOB. 2L O2 APPLIED TO AID WITH SOB. PATIENT INDICATED DECREASE IN PAIN WITH THE DECREASE OF IV VANCOMYCIN. MD MADE AWARE AND NO NEW ORDERS RECEIVED. WILL CONTINUE TO MONITOR.
--- NOTE | 2016-06-13 13:15 | ED DISCHARGE INSTRUCTIONS ---
Patient: MARIBEL MAYES General Instructions [facility] VisitID: [id number] [place] [address] 61y, F Registration Date/Time: 06/12/2016 Acute dyspnea Influenza (A) and bacterial pneumonia. Vital signs recorded and reviewed; empiric antibiotics given in the ED. Acute bronchospasm Weakness. ADDITIONAL INFORMATION Dyspnea (Shortness Of Breath) Shortness of Breath (also known as "Dyspnea") is the sense that you can't catch your breath or can't get enough air. Dyspnea can be caused by many different conditions such as: Acute asthma attack Worsening of emphysema (also called "COPD") -- a lung diseasethat is caused by smoking A mucus plug blocks a large air passage in the lung -- this can occur with emphysema or chronic bronchitis Congestive Heart Failure ("CHF") -- when a weak heart muscle allows excess fluid to collect inthe lungs Panic attacks, anxiety -- fear can cause rapid breathing ("hyperventilation") Pneumonia -- infection in the lung tissue Exposure to toxic fumes or smoke Pulmonary embolus (blood clot to the lung) Based on your visit today, the exact cause of your shortness of breath is not certain. Your tests do not show any of the serious causes of dyspnea. Sometimes, further testing is needed to find out if a serious problem exists. Therefore, it is important for you to watch for any new symptoms or worsening of your condition and follow up with your doctor as directed. Home Care: When your symptoms are better, resume your usual activities. If you smoke, you need to stop. Join a stop-smoking program or ask your doctor for help. Follow Up with your doctor or as advised by our staff. Get Prompt Medical Attention if any of the following occur: Increasing shortness of breath or wheezing Redness, pain or swelling in one leg Swelling in both legs or ankles Unexpected weight gain Chest, arm, shoulder, neck or upper back pain Dizziness, weakness or fainting Palpitations (the sense that your heart is fluttering, beating fast or hard) Fever of 100.4F (38C) or higher, or as directed by your healthcare provider Cough with dark colored or bloody sputum (mucus) Bronchospasm (Adult) Bronchospasm occurs when the airways (bronchial tubes) go into spasm and contract. This makes it hard to breathe and causes wheezing (a high-pitched whistling sound). Bronchospasm can also cause frequent coughing without the wheezing sound. Bronchospasm is due to irritation, inflammation or allergic reaction of the airways. People with asthma get bronchospasm. However, not everyone with bronchospasm has asthma. Being exposed to harmful fumes, a recent case of bronchitis, or a flare-up of chronic emphysema (COPD) may cause the airways to spasm. An episode of bronchospasm may last 7-14 days. Medicine may be prescribed to relax the airways and prevent wheezing. Antibiotics will be prescribed only if your doctor thinks there is a bacterial infection. Antibiotics do not help a viral infection. Home Care: Drink lots of water or other fluids (at least 10 glasses a day) during an attack. This will loosen lung secretions and make it easier to breathe. If you have heart or kidney disease, check with your doctor before you drink extra amounts of fluids. Take prescribed medicine exactly at the times advised. If you have a hand-held inhaler or aerosol breathing medicine, do not use it more than once every four hours, unless told to do so. If prescribed an antibiotic or prednisone, take all of the medicine even if you are feeling better after a few days. Do not smoke. Avoid being exposed to the smoke of others. If you were given an inhaler, use it exactly as directed. If you need to use it more often than prescribed, your condition may be getting worse. Contact your doctor or this facility. Follow Up With Your Doctor, Or As Directed. [ NOTE: If you are age 65 or older, or if you have chronic asthma or COPD, we recommend a PNEUMOCOCCAL VACCINATION every five years and a yearly INFLUENZA VACCINATION (FLU-SHOT) every . Ask your doctor about this.] Get Prompt Medical Attention If Any Of The Following Occur: Increased wheezing or shortness of breath Need to use your inhalers more often than usual without relief Fever of 100.4F (38C) or higher, or as directed by your healthcare provider Coughing up lots of dark-colored or bloody sputum (mucus) Chest pain with each breath You do not start to improve within 24 hours Pneumonia (Adult) Pneumonia is an infection deep within the lung, in the small air sacs (alveoli). It may be due to a virus or bacteria and is usually treated with an antibiotic. Severe cases require treatment in the hospital. Milder cases can be treated at home. Symptoms usually start to improve during the first2 days of treatment. Home Care: Rest at home for the first 23 days or until you feel stronger. When resuming activity, dont let yourself become overly tired. Avoid exposure to cigarette smoke (yours or others). You may use acetaminophen (Tylenol) or ibuprofen (Motrin, Advil) to control fever or pain, unless another medicine was prescribed. [NOTE: If you have chronic liver or kidney disease or ever had a stomach ulcer or GI bleeding, talk with your doctor before using these medicines.] (Aspirin should never be used in anyone under 18 years of age who is ill with a fever. It may cause severe liver damage.) Your appetite may be poor so a light diet is fine. Keep well hydrated by drinking 68 glasses of fluids per day (water, sport drinks such as Gatorade, sodas without caffeine, juices, tea, soup, etc.). This will help loosen secretions in the lung, making it easier for you to cough up the phlegm (sputum). If you also have heart or kidney disease, check with your doctor before you drink extra amounts of fluids. Finish all antibiotic medicine prescribed, even if you are feeling better after a few days. Follow Up with your doctor in the next 23 days (or as advised) to be sure you are responding properly to the medicine. [NOTE: If you are age 65 or older, or if you have chronic lung disease (asthma, emphysema or COPD), we recommendthe pneumococcal vaccination and a yearlyinfluenzavaccination(flu-shot) every . Ask your doctor about this.] Get Prompt Medical Attention if any of the following occur: Not getting better within the first 48 hours of treatment Increasing shortness of breath or rapid breathing (over 25 breaths/minute) Coughing up blood or increasing chest pain with breathing Fever of 100.4F (38C) oral or higher, not better with fever medication Increasing weakness, dizziness or fainting Increasing thirst or dry mouth Sinus pain, headache or a stiff neck Chest pain not caused by coughing You have been given the following additional information: Dyspnea Bronchospasm (Adult) Pneumonia (Adult) (Electronically signed by Woody Jules MD 06/13/2016 13:15)
--- NOTE | 2016-06-13 13:15 | ED MAR SUMMARY ---
..... Medication Administration Record [facility] [address] [place] [address] Patient: MARIBEL MAYES Visit ID: [id number] 61y, F Weight: 66.6 kg Height/Length: 62 in BMI: 26.9 ALLERGIES: Biaxin, Sulfa Antibiotics Given 10:24 06/12/2016 Karen Quiroga R.N. Medication Administered: SOLU-MEDROL [IVP] (METHYLPREDNISOLONE SODIUM SUCC), Dose: 125 mg IVP over 2 minute(s), Site: #1 right AC. Medication Ordered: Solu-MEDROL IV 125 mg (NOW). Start 10:24 06/12/2016 Karen Quiroga R.N., Continued Upon Disposition 11:06/12/2016 Karen Quiroga R.N. Medication Administered: IV NS (SALINE), Dose: IV Fluids over 0.5 hour(s), Rate: 1000 mL/hr, Dispensed: 1000 mL bag, Site: #1 right AC. Medication Ordered: IV NS : initial bolus 250 mL (1000 mL/hr), then 125 mL/hr for 12h (NOW); Routine. Given 10:25 06/12/2016 Karen Quiroga R.N. Medication Administered: TAMIFLU [PO], Dose: 75 mg Capsules PO. Medication Ordered: - (TAMIFLU 75 MG PO). Start 10:39 06/12/2016 Karen Quiroga R.N., Continued Upon Disposition 11:08 06/12/2016 Karen Quiroga R.N. Medication Administered: LEVAQUIN [IVPB] (LEVOFLOXACIN), Dose: 750 mg IVPB over 1.5 hour(s), Rate: 100 mL/hr, Dispensed: 150 mL bag, Site: #1 right AC. Medication Ordered: Levaquin IV 750 mg/150 mL (NOW).
--- NOTE | 2016-06-13 13:15 | ED MED RECONCILIATION SUMMARY ---
Patient: MARIBEL MAYES Medication Reconciliation Report [facility] VisitID: [id number] [address] [place] [address] 61y, F Registration Date/Time: 06/12/2016 Weight: 66.6 kg Height/Length: 62 in. BMI: 26.9 ALLERGIES: Biaxin, Sulfa Antibiotics The patient's Home Medications are listed below: THE FOLLOWING MEDICATIONS NEED TO BE RECONCILED: Morphine Sulfate Oral Synthroid Oral Ziac Oral The source(s) of the original Home Medication information: Not obtained. The following Medications were given to the patient in the Emergency Department: SOLU-MEDROL [IVP] IVP 125 mg, administered: 06/12/2016 10:24:00 AM IV NS IV Fluids bolus 0, then 1000 mL/hr, administered: 06/12/2016 10:24:00 AM Tamiflu [PO] PO 75 mg, administered: 06/12/2016 10:25:00 AM Levaquin [IVPB] IVPB bolus 0, then 750 mg 100 mL/hr, administered: 06/12/2016 10:39:00 AM The following Medications were prescribed to the patient: None.
--- NOTE | 2016-06-13 13:15 | ED MAR SUMMARY ---
..... Medication Administration Record [facility] [address] [place] [address] Patient: MARIBEL MAYES Visit ID: [id number] 61y, F Weight: 66.6 kg Height/Length: 62 in BMI: 26.9 ALLERGIES: Biaxin, Sulfa Antibiotics Given 10:24 06/12/2016 Karen Quiroga R.N. Medication Administered: SOLU-MEDROL [IVP] (METHYLPREDNISOLONE SODIUM SUCC), Dose: 125 mg IVP over 2 minute(s), Site: #1 right AC. Medication Ordered: Solu-MEDROL IV 125 mg (NOW). Start 10:24 06/12/2016 Karen Quiroga R.N., Continued Upon Disposition 11:06/12/2016 Karen Quiroga R.N. Medication Administered: IV NS (SALINE), Dose: IV Fluids over 0.5 hour(s), Rate: 1000 mL/hr, Dispensed: 1000 mL bag, Site: #1 right AC. Medication Ordered: IV NS : initial bolus 250 mL (1000 mL/hr), then 125 mL/hr for 12h (NOW); Routine. Given 10:25 06/12/2016 Karen Quiroga R.N. Medication Administered: TAMIFLU [PO], Dose: 75 mg Capsules PO. Medication Ordered: - (TAMIFLU 75 MG PO). Start 10:39 06/12/2016 Karen Quiroga R.N., Continued Upon Disposition 11:08 06/12/2016 Karen Quiroga R.N. Medication Administered: LEVAQUIN [IVPB] (LEVOFLOXACIN), Dose: 750 mg IVPB over 1.5 hour(s), Rate: 100 mL/hr, Dispensed: 150 mL bag, Site: #1 right AC. Medication Ordered: Levaquin IV 750 mg/150 mL (NOW).
--- NOTE | 2016-06-13 13:15 | ED MED RECONCILIATION SUMMARY ---
Patient: MARIBEL MAYES Medication Reconciliation Report [facility] VisitID: [id number] [address] [place] [address] 61y, F Registration Date/Time: 06/12/2016 Weight: 66.6 kg Height/Length: 62 in. BMI: 26.9 ALLERGIES: Biaxin, Sulfa Antibiotics The patient's Home Medications are listed below: THE FOLLOWING MEDICATIONS NEED TO BE RECONCILED: Morphine Sulfate Oral Synthroid Oral Ziac Oral The source(s) of the original Home Medication information: Not obtained. The following Medications were given to the patient in the Emergency Department: SOLU-MEDROL [IVP] IVP 125 mg, administered: 06/12/2016 10:24:00 AM IV NS IV Fluids bolus 0, then 1000 mL/hr, administered: 06/12/2016 10:24:00 AM Tamiflu [PO] PO 75 mg, administered: 06/12/2016 10:25:00 AM Levaquin [IVPB] IVPB bolus 0, then 750 mg 100 mL/hr, administered: 06/12/2016 10:39:00 AM The following Medications were prescribed to the patient: None.
--- NOTE | 2016-06-13 14:12 | NUR ---
PATIENT STABLE THE REST OF THE SHIFT. NO FURTHER COMPLAINTS OF PAIN. VANCO DC'D AND ORAL CEPHALEXIN STARTED. PATIENT TAKES MEDICATION AT HOME FOR BLOOD PRESSURE ORDER RECEIVED FOR MEDICATION IN HOSPITAL.
--- NOTE | 2016-06-13 14:52 | NUR ---
I discussed with the patient their current medications, possible side effects and answered questions.
[2016-06-13 18:25] VITALS: BP 142/83
--- NOTE | 2016-06-13 18:43 | NUR ---
CALL TO MD TO NOTIFY OF A.M. LABS REVEALING LOW K+ AND HIGH GLUCOSE, PATIENT ON SOLUMEDROL. PER MD NOTIFY IN A.M. IF LAB GLUCOSE GREATER THAN 200. WILL PASS ONTO NEXT SHIFT. WCTM
[2016-06-13 21:32] VITALS: BP 158/88
[2016-06-14] VITALS (7 sets, daily range): BP systolic 134–175; BP diastolic 78–94
--- NOTE | 2016-06-14 02:50 | NUR ---
PATIENT AWOKE WITH COUGHING FIT, MUCOUS WITH RED STRINGS WITH NOSE BLOWING, NO COUGHING UP OF MUCOUS OF YET. RT WAS CALLED AND IS NOW PROVIDING TX. PAIN LEVEL 8/10 IN HEAD AND RESPIRATORY/CHEST. PROVIDING 600MG IBUPROPHEN AFTER TX. WCTM.
--- NOTE | 2016-06-14 05:46 | NUR ---
Patient ambulated to bsc well, sob but followed directions and complied with care. All ports in triple lumen are patent. wctm.
--- NOTE | 2016-06-14 10:01 | NUR ---
PATIENT AMBULATING IN ROOM INDEPENDENTLY W/O PROBLEMS. ON 3LNC AT BEGINNING OF SHIFT AT 100%. TOOK OFF O2 TO RA. SEE SHIFT ASSESSMENT FOR FURTHER DETAILS.
[2016-06-14] MEDS ORDERED: HYDROCHLOROTH12.5 MG PO (13:50)
--- NOTE | 2016-06-14 13:50 | Progress Note ---
Subjective General Patient is seen at the bedside c/o sob and contibued wheezing, says her symptoms are not better becuase she is on keflex and keflex is making her more sicker Constitutional Denies: Fever, Chills, Sweats, Weakness. Eyes Denies: Vision Change, Conjunctival Inflammation, Eyelid Inflammation, Redness. ENT Denies: Nasal Discharge, Nasal Congestion, Mouth Pain, Mouth Swelling, Throat Pain, Throat Swelling. Respiratory Cough, Dry, SOB w/exertion, Wheezing. Denies: Hemoptysis, Pleuritic Pain, Sputum. Cardiovascular Denies: Chest Pain, Palpitations, Orthopnea, PND, Edema. Gastrointestinal Denies: Nausea, Vomiting, Abdominal Pain, Diarrhea, Constipation. Genitourinary Denies: Dysuria, Frequency, Incontinence, Hematuria. Musculoskeletal Denies: Back Pain. Neurological Denies: Incoordination, Change in speech, Confusion, Seizures. Physical Exam Vital Signs / I&Os Vital Signs Date Time Temp Pulse Resp B/P Pulse O2 O2 Flow FiO2 Ox Delivery Rate 06/14 1028 100 06/14 1010 98.2 85 20 157/91 100 Room Air 06/14 0748 3.0 06/14 0632 98.1 72 20 152/84 100 Nasal 2.0 Cannula 06/14 0257 3.0 06/14 0242 2.0 06/14 0218 97.5 77 16 167/90 100 Nasal 2.0 Cannula 06/13 2330 Nasal 3.0 Cannula 06/13 2132 97.9 80 16 158/88 100 Nasal 2.0 Cannula 06/13 1921 2.0 06/13 1825 98.2 87 20 142/83 100 Nasal 2.0 Cannula 06/13 1615 Room Air 2.0 06/13 1354 2.0 I&O 06/13 0800 06/13 1600 06/14 0000 Intake Total 1978 440 780 Output Total 1175 1125 1500 Balance 803 -186 -729 General Appearance Alert, Oriented X3, No acute distress HEENT Atraumatic, PERRLA, Moist mucous membranes Lungs bilateral air entry present with extensive wheezing Neck Supple, No JVD Cardiovascular Regular rate and rhythm, Normal S1 and S2 Abdomen Normal bowel sounds, Soft, No tenderness, No guarding Extremities No edema Skin No Significant Lesions Neurological No lateralizing signs LAB Results Laboratory Tests 06/14 738 Chemistry Plasma Sodium (136 - 145 mmol/L) 135 Plasma Potassium (3.5 - 5.1 mmol/L) 2.8 Plasma Chloride (98 - 107 mmol/L) 101 CO2 (Enzymatic) (21 - 32 mmol/L) 29 BUN (7 - 18 mg/dL) 14 Creatinine (0.6 - 1.3 mg/dL) 0.8 Est GFR ( Amer) (mL/min) >60 Est GFR (Non-Af Amer) (mL/min) >60 Glucose (70 - 110 mg/dL) 93 Plasma Calcium (8.5 - 10.1 mg/dL) 7.9 Plasma Magnesium (1.8 - 2.4 mg/dL) 1.7 Toxicology Vancomycin Trough (10.0 - 20.0 ug/mL) 5.1 Assessment and Plan Problem List 1. Pneumonia and influenza Plan switch to ceftriaxone 2. Reactive airway disease with wheezing Plan Patient with h/o chronic cigarette smoking, last was 2 weeks back, now with wheezing on prednisone duo nebs standing c/w ceftriaxone 3. Hypertension Plan on multiple BP meds will switch HCTZ to lasix for now will switch to half NS from NS 4. Hypokalemia Plan replace with KCL recheck electrolytes tonight 5. Hypomagnesemia Plan replace magnesium check mag in am 6. Alcohol dependence Plan Patient drinks 2-3 drinks of beer every day monitor for alcohol withdrawal monitor and replace electrolytes E&M Codes Rounding: Inpt-Moderate/[id number]
--- NOTE | 2016-06-14 14:50 | NUR ---
PATIENT WITH ELEVATED BP'S. MD NOTIFIED AND STATED NEW ORDER FOR IV LASIX AND NO OTHER ORDERS AT THIS TIME. WILL CONTINUE TO MONITOR.
--- NOTE | 2016-06-14 15:02 | NUR ---
WROTE ORDERS FOR IV LASIX. PATIENT ADAMANT NOT TO TAKE IV LASIX. MD NOTIFIED AND MD STATED PATIENT OK TO BRING IN HOME BP MEDS AND TAKE WHILE HERE.
--- NOTE | 2016-06-14 19:00 | NUR ---
RUNNING POTASSIUM THROUGH IV SLOWLY DUE TO IRRITATING IV SITE. TOLERATING WITH A SLOW RATE. PATIENT COUGHING LESS AFTER HAD MERCED SIMON EARLIER TODAY. TOOK SHOWER THIS EVENING, "FEELING BETTER."
[2016-06-15 02:53] VITALS: BP 156/91
[2016-06-15 06:01] VITALS: BP 170/99
--- NOTE | 2016-06-15 08:49 | DIAGNOSTIC IMAGING REPORT ---
PROCEDURE: XR CHEST 2 VIEW INDICATION: FU pneumonia TECHNIQUE: PA and lateral view. COMPARISON: Chest x-ray 06/12/2016 FINDINGS: Hyperinflation with resolved left basilar infiltrate/atelectasis. Cardiovascular structures are normal. Bony thorax is unremarkable. IMPRESSION: 1. Resolved left basilar infiltrate/atelectasis 2. Hyperinflation
[2016-06-15 10:27] VITALS: BP 117/68
--- NOTE | 2016-06-15 12:35 | NUR ---
PATIENT TOLERATING SERVICES WELL, ONLY ABLE TO TOLERATE IV K+ AT 15CC / HR, MD NOTIFIED, TO CANCEL 2ND BAG AND GIVE IT PO. WCTM. 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
[2016-06-15] MEDS ORDERED: LEVOFLOXACIN500 MG PO (14:09)
[2016-06-15] MEDS ORDERED: PROAIR HFA IN (14:12)
[2016-06-15] MEDS ORDERED: TAMIFLU75 MG PO (14:12)
--- NOTE | 2016-06-15 14:17 | Provider's Discharge Care Plan ---
Problem, Goal, Plan Problem List 1. Pneumonia and influenza Instructions: COMPLETE COURSE OF TAMIFLU COMPLETE THE COURSE OF ANTIBIOTICS WASH YOUR HANDS FREQUENTLY TO PREVENT SPREAD OF FLU, Do not share your things with others for next 5-6 days 2. Reactive airway disease with wheezing Instructions: Stop smoking, Get Pulmonary function test as an out patient 3. Alcohol dependence Instructions: avoid alcohol
[2016-06-15] MEDS ORDERED: PREDNISONE10 MG PO (14:19)
[2016-06-15 14:35] VITALS: BP 144/83
--- NOTE | 2016-06-15 19:23 | NUR ---
PATIENT DISHARGED HOME WITH AT 181, TWO IV'S REMOVED FROM RAC AND LFA, BOTH CATHETER TIPS INTACT, COVERED WITH GAUZE AND COBAN. GIVEN SIGNED RX AND PERSONAL BELONGINGS INCLUDING HOME MEDS, TOLD TO REPORT SXS SUCH INCREASED SOB, FEVER >100.5, INCREASED PAIN, DIZZINESS. PT. STATES THAT HER PCP OFFICE IS CLOSED TODAY BUT THAT SHE WILL CALL AND MAKE APPOINTMENT TOMORROW FOR APPROXIMATELY 1 WEEK FROM NOW. ESCORTED OUT BY [employer].
--- NOTE | 2016-06-18 03:26 | DISCHARGE SUMMARY ---
ADMIT DATE: 06/12/2016 DISCHARGE DATE: 06/15/2016 ADMITTING DIAGNOSES: 1. Influenza A 2. Left lower lobe pneumonia 3. Chronic obstructive pulmonary disease exacerbation DISCHARGE DIAGNOSES: 1. Influenza A 2. Chronic obstructive pulmonary disease exacerbation 3. Left lower lobe pneumonia 4. Hypertension 5. Electrolyte imbalance, corrected BRIEF HISTORY: A 61-year-old lady who presented to [facility] Emergency Department with a complaint of cold symptoms for 5 days, including sore throat and nasal congestion. This progressed and worsen to increased difficulty with coughing and shortness of breath and wheezing. She complained of orthopnea and fever. On initial evaluation in the emergency department, she was found to have significant chest congestion, wheezing, low saturations in the 80s. She had a chest x-ray which showed left lower lobe pneumonia and an influenza screen was positive, and for this reason, she was admitted to the hospital. HOSPITAL COURSE: The patient was admitted to the hospital for influenza A, left lower lobe pneumonia, chronic obstructive pulmonary disease exacerbation. She was treated with Tamiflu, IV antibiotics, IV Solu-Medrol, dual nebulization. She was also found to have electrolyte imbalance, including hypomagnesemia, hyponatremia, which was corrected and replaced. She has a history of chronic smoking. She was counseled for smoking cessation. PHYSICAL EXAMINATION: VITAL SIGNS: At the time of discharge BP 144/83, pulse rate 96, temperature 97.7, respiratory rate 18 per minute, O2 saturations on room air 96% . GENERAL: She is alert, awake, and oriented x3. HEENT: Head, ears, eyes, nose and throat exam was normal. CHEST: Bilateral wheezing was still there, but significantly decreased. Bilateral air entry equal both sides. HEART: S1, S2 normal. Regular rhythm. GASTROINTESTINAL: Normal bowel sounds. Abdomen soft, nontender, no guarding. SKIN: Examination of the skin is intact. NEUROLOGIC: The patient is alert, awake, and oriented x3. Neurologic examination was grossly intact. LAB/IMAGING: At the time of discharge were WBC 12.7, hemoglobin 10.4, hematocrit 31.3, platelets 255. Sodium 135, potassium 3.3, chloride 98, bicarbonate 29, BUN 9, creatinine 0.6, GFR more than 60, glucose 90, calcium 8.4, magnesium 1.7. Total bilirubin 0.4, AST 52, ALT 52, alkaline phosphatase 113, creatinine kinase 146. Troponin negative. Total protein 7.4, albumin 3.8. Procalcitonin less than 0.5. Vancomycin trough 5.1. Urinalysis: No signs of infection. DISCHARGE INSTRUCTIONS/MEDICATIONS: Pneumonia and influenza. She will be discharged on Tamiflu and oral Levaquin. Need to maintain hand hygiene. You are advised not to share anYthing with others for the next 5 to 6 days. Avoid sharing clothes/towels and your things with other. Patient needs to get pulmonary function tests as an outpatient. Alcohol dependence: Avoid alcohol. She was asked to join an alcohol and drug rehab program which she did not want to consider at this time.
== END 2016-06-15 18:15 | disposition home or self-care (01) | DRG 190 ==
LOC: ED SRH 06:38 → TRANS SRH 10:11 → ACUTE3 SRH 11:34
PROVIDERS: ADMIT Emergency Medicine Emergency Medical Services
DX: J44.0 Chronic obstructive pulmonary disease with (acute) lower respiratory infection (principal); J15.9 Unspecified bacterial pneumonia; E87.1 Hypo-osmolality and hyponatremia; J10.08 Influenza due to other identified influenza virus with other specified pneumonia; J44.1 Chronic obstructive pulmonary disease with (acute) exacerbation; E83.42 Hypomagnesemia; R53.1 Weakness; F17.210 Nicotine dependence, cigarettes, uncomplicated; Z71.6 Tobacco abuse counseling
CPT/HCPCS: 90004; 90047; 90065; 90074; 90100; 90616; 91400; 91583; 92031; 92610; 92720; 93004; 95059